=== PATIENT | male | born 1990 | race Caucasian/White ===

== ENCOUNTER 2019-05-28 12:50 | Emergency (ER) | payer OTHER ==
[2019-05-28 13:03] VITALS: BP 140/96; PULSE 88; TEMP 98.9; BMI 27.1
[2019-05-28] MEDS ORDERED: KETOROLAC TROMETHAMINE 30 MG/1 ML VIAL IM ONE (13:59)
[2019-05-28] MEDS ORDERED: DEXAMETHASONE SOD PHOSPHATE 10 MG/1 ML VIAL IM ONE (13:59)
[2019-05-28] MEDS ORDERED: KETOROLAC TROMETHAMINE 30 MG/1 ML VIAL ONE (14:01)
[2019-05-28] MEDS ORDERED: DEXAMETHASONE SOD PHOSPHATE 10 MG/1 ML VIAL ONE (14:01)
--- NOTE | 2019-05-28 14:02 | PDOC ---
History of Present Illness - General Chief Complaint: Sore Throat Stated Complaint: RIGHT SIDE SORE THROAT Time Seen by Provider: 05/28/19 12:55 - History of Present Illness Initial Comments: 05/28/19 13:59 28 years old with no significant past medical history presents to the emergency department with several day history of right-sided throat pain. Patient took some leftover antibiotics does not remember the name initially felt a little better and then pain worsened. Pain is predominantly on the right side there is no neck stiffness no fever has pain with swallowing but has been able to drink normally has pain with eating hard food Symptoms are moderate persistent constant no alleviating factors. Past History - Past Medical History Allergies/Adverse Reactions: Allergies Allergy/AdvReac Type Severity Reaction Status Date / Time No Known Allergies Allergy Verified 05/28/19 12:52 Home Medications: Ambulatory Orders Amphet Asp/Amphet/D-Amphet [Adderall 20 mg Tablet] 30 mg PO DAILY 08/10/15 Clonazepam [Klonopin] 1 mg PO DAILY 08/10/15 Quetiapine Fumarate "Xr" [Seroquel Xr -] 200 mg PO HS 08/10/15 Clindamycin [Cleocin -] 300 mg PO TID #21 capsule 05/28/19 COPD: No Psychiatric Problems: Yes (ADD, ANXIETY AND DEPRESSION) - Psycho Social/Smoking Cessation Hx Smoking Status: No Smoking History: Current some day smoker Have you smoked in the past 12 months: Yes Number of Cigarettes Smoked Daily: 3 Information on smoking cessation initiated: Yes 'Breaking Loose' booklet given: 08/10/15 Hx Alcohol Use: No Drug/Substance Use Hx: Yes (MARIJUANA) Substance Use Type: Marijuana Review of Systems - Review of Systems Comments:: 05/28/19 14:00 ROS: A complete review of 10 out of 10 review of systems is taken and is negative apart from what is previously mentioned below and in the HPI. *Physical Exam - Vital Signs Last Vital Signs Temp Pulse Resp BP Pulse Ox 98.9 F 88 16 140/96 100 05/28/19 12:51 05/28/19 12:51 05/28/19 12:51 05/28/19 12:51 05/28/19 12:51 - Physical Exam 05/28/19 14:01 Vitals: Triage Vital signs reviewed General Appearance: No acute distress, well nourished well developed, Head: Atraumatic, Throat: Posterior oropharynx with erythema, mucous membranes moist, right-sided soft palate and tonsillar swelling Neck: Supple; no Nucal rigidity Chest Wall: Nontender Cardiac: Regular rate and rhythym, no murmurs, no rubs, no gallops, Lungs: Clear to auscultation bilateral, good air movement bilaterally, Abdomen: Soft, non distended, normal bowel sounds, non tender to palpation Extremities: Full range of motion to all extremities, no cyanosis, clubbing, or edema Skin: Warm and dry, no rashes or lesions, no rash, no petechiae Psych: Normal mood, normal affect Medical Decision Making - Medical Decision Making 05/28/19 14:12 Bedside ultrasound performed with endocavitary probe to swollen tonsil and soft palate to right side of patient's throat. No discernible abscess or peritonsillar abscess noted Patient's neck is supple he is well-appearing he is able to swallow there is no discrete abscess at this time no indication for drainage at this time Decadron given in the emergency department patient placed on 7-day course of clindamycin he will follow-up with ENT on Friday if no improvement in symptoms he will return to the emergency department for any worsening symptoms he will continue the antibiotics if his symptoms resolved Findings, the need for follow-up and strict return instructions discussed with patient. Discharge - Discharge Information Problems reviewed: Yes Clinical Impression/Diagnosis: Pharyngitis Qualifiers: Pharyngitis/tonsillitis etiology: unspecified etiology Qualified Code(s): J02.9 - Acute pharyngitis, unspecified Condition: Stable Disposition: HOME - Admission No - Additional Discharge Information Prescriptions: Clindamycin [Cleocin -] 300 mg PO TID #21 capsule - Follow up/Referral Referrals: [facility] [place] [facility] [place] [Provider Group] - Patient Discharge Instructions Patient Printed Discharge Instructions: Sore Throat Additional Instructions: Take [id number] Motrin every 4-6 hours as directed on package. Take clindamycin as prescribed finish all the antibiotics. Take with an over-the- counter probiotic as directed on package. If no improvement in symptoms by Friday follow-up with ENT if any worsening symptoms difficulty breathing difficulty swallowing return to the emergency department immediately If symptoms are rapidly improving continue all antibiotics. Return to ED for any concerns. - Post Discharge Activity
== END 2019-05-28 14:24 | disposition home or self-care (01) ==
LOC: FER 12:50
PROC: 3E023GC Introduction of Other Therapeutic Substance into Muscle, Percutaneous Approach (ICD-10-PCS; principal; 2019-05-28)
DX: J02.9 Acute pharyngitis, unspecified (principal); F17.210 Nicotine dependence, cigarettes, uncomplicated; F41.8 Other specified anxiety disorders; F98.8 Other specified behavioral and emotional disorders with onset usually occurring in childhood and adolescence
CPT/HCPCS: 99281-25; J1100